=== PATIENT | male | born 1990 | race Caucasian/White ===

== ENCOUNTER 2016-09-01 07:15 | Emergency (ER) | payer OTHER ==
[~2016-09-01] VITALS: Ht 175.3 cm; Wt 81.6 kg
[2016-09-01] MEDS ORDERED: CYCL10TA PO (07:34)
[2016-09-01 08:09] VITALS: BP 121/72
[2016-09-01] MEDS ORDERED: PRED20TA PO (08:10)
[2016-09-01] MEDS ORDERED: VALI5TAB PO (08:10)
[2016-09-01] MEDS ORDERED: NORC1TAB4 PO (08:10)
== END 2016-09-01 08:15 | disposition home or self-care (01) ==
LOC: M ED 08:05
DX: S39.012A Strain of muscle, fascia and tendon of lower back, initial encounter (principal); X58.XXXA Exposure to other specified factors, initial encounter; Y92.89 Other specified places as the place of occurrence of the external cause; Y93.89 Activity, other specified; Y99.8 Other external cause status; Z79.52 Long term (current) use of systemic steroids; F17.210 Nicotine dependence, cigarettes, uncomplicated